=== PATIENT | male | born 1970 | race Caucasian/White ===

== ENCOUNTER → 2024-10-13 | Day surgery (SDC) | payer BC ==
[~2024-10-13] MED LIST: CRESTOR40 MG PO; HYOSCYAMINE SULFATE 0.5 MG/ML INJ ONE; LIDOCAINE HCL 2% LOCAL INJ 5 ML SDV VIAL INJ ONE; LISINOPRIL-HCT1 EAC2 PO; MIDAZOLAM HCL 2 MG/2 ML VIAL ONE; PANTOPRAZOLE SO40 MG PO; PROPOFOL IV EMULSION 50 ML IV ONE; WELLBUTRIN XL150 MG PO; [UNRECOGNIZED DRUG - OTHER]
[2024-10-13] MEDS: LACTATED RINGER'S 1,000 ML ONE (10:44)
[2024-10-13 12:50] VITALS: TEMP 97.1
[2024-10-13 13:10] VITALS: BP 119/77; PULSE 81; RESP 16; O2SAT 96
== END | disposition home or self-care (01) ==
LOC: OR 10:19
PROVIDERS: ATTEND Internal Medicine Gastroenterology
DX: Z12.11 Encounter for screening for malignant neoplasm of colon (principal); K63.5 Polyp of colon; K21.00 Gastro-esophageal reflux disease with esophagitis, without bleeding; K31.89 Other diseases of stomach and duodenum; K57.30 Diverticulosis of large intestine without perforation or abscess without bleeding; K64.8 Other hemorrhoids; K44.9 Diaphragmatic hernia without obstruction or gangrene; E11.9 Type 2 diabetes mellitus without complications; I10 Essential (primary) hypertension; Z79.899 Other long term (current) drug therapy; Z01.810 Encounter for preprocedural cardiovascular examination
CPT/HCPCS: 43239; 45384; 93005; J1980; J2003; J2250; J2704; J7121